=== PATIENT | female | born 2000 | race Two or more races ===

== ENCOUNTER → 2024-02-09 | Emergency (ER) | payer OTHER ==
[~2024-02-09] VITALS: Ht 162.6 cm; Wt 68.0 kg
[~2024-02-09] MED LIST: CABERGOLINE0.5 MG PO
== END | disposition home or self-care (01) ==
LOC: ER 10:46
DX: S19.9XXA Unspecified injury of neck, initial encounter (principal); V49.88XA Car occupant (driver) (passenger) injured in other specified transport accidents, initial encounter; Y93.89 Activity, other specified; Y92.89 Other specified places as the place of occurrence of the external cause; Y99.8 Other external cause status; Z88.0 Allergy status to penicillin; Z88.5 Allergy status to narcotic agent; Z88.8 Allergy status to other drugs, medicaments and biological substances